=== PATIENT | female | born 1960 | race Caucasian/White ===

== ENCOUNTER 2016-11-01 22:51 | Emergency (ER) | payer BC ==
[~2016-11-01] VITALS: Ht 167.6 cm; Wt 63.5 kg
[~2016-11-01 22:51] MED LIST: LISINOPRIL HCTZ PO; LISINOPRIL20 MG PO; TYLENOL EXTRA500 MG PO; ZESTORETIC 20-1 EAC1 NG
[2016-11-02] MEDS ORDERED: CETRAXAL1 EACH RIGHT EAR (00:36)
[2016-11-02 00:49] VITALS: BP 110/64
== END 2016-11-02 00:51 | disposition home or self-care (01) ==
LOC: RME 22:51 → EME 22:51 → RME 11-02 00:51
DX: H60.91 Unspecified otitis externa, right ear (principal); M43.6 Torticollis; R51 Headache; M54.2 Cervicalgia; F17.200 Nicotine dependence, unspecified, uncomplicated
CPT/HCPCS: 99281; 99284